=== PATIENT | male | born 1980 | race Caucasian/White ===

== ENCOUNTER 2018-08-28 14:19 | Emergency (ER) | payer SELFPAY ==
[~2018-08-28] VITALS: Ht 185.4 cm; Wt 120.2 kg
[2018-08-28 14:42] VITALS: BP 131/66
[2018-08-28] MEDS ORDERED: KETOROLAC TROMETH 60MG/2ML VIAL IM ONE (15:15)
[2018-08-28] MEDS ORDERED: methylPREDNISolone SOD SUCC 125 MG/2 ML VL IM ONE (15:15)
== END 2018-08-28 16:41 | disposition home or self-care (01) ==
LOC: ER 14:19
DX: M54.5 Low back pain (principal)
CPT/HCPCS: 72100; 96372; 99283; J1885; J2930

== ENCOUNTER 2019-04-05 23:20 | Emergency (ER) | payer OTHER ==
[~2019-04-05] VITALS: Ht 185.4 cm; Wt 108.9 kg
[2019-04-06 00:15] VITALS: BP 113/72
[2019-04-06] MEDS ORDERED: HYDROcodone-ACET 10/325MG TAB PO ONE (01:00)
[2019-04-06] MEDS ORDERED: cefTRIAXone SOD 1,000 MG VL IM ONE (01:00)
[2019-04-06] MEDS ORDERED: LIDOCAINE 1% HCL (LOCAL ANESTH.) INJ 20ML MDV IJ ONE (01:15)
== END 2019-04-06 01:39 | disposition home or self-care (01) ==
LOC: ER 23:20
DX: K08.89 Other specified disorders of teeth and supporting structures (principal)
CPT/HCPCS: 96372; 99283; J0696; J2001

== ENCOUNTER 2019-06-07 07:09 | Emergency (ER) | payer OTHER ==
[~2019-06-07] VITALS: Ht 185.4 cm; Wt 117.9 kg
[2019-06-07 07:28] VITALS: BP 128/77
[2019-06-07] MEDS ORDERED: cefTRIAXone SOD 1,000 MG VL IM ONE (07:30)
== END 2019-06-07 07:54 | disposition home or self-care (01) ==
LOC: ER 07:09
DX: S20.461A Insect bite (nonvenomous) of right back wall of thorax, initial encounter (principal); S40.861A Insect bite (nonvenomous) of right upper arm, initial encounter; J02.9 Acute pharyngitis, unspecified; W57.XXXA Bitten or stung by nonvenomous insect and other nonvenomous arthropods, initial encounter; Y93.89 Activity, other specified; Y92.89 Other specified places as the place of occurrence of the external cause; Y99.8 Other external cause status
CPT/HCPCS: 96372; 99283; J0696

== ENCOUNTER 2019-06-28 12:58 | Emergency (ER) | payer OTHER ==
[~2019-06-28] VITALS: Ht 182.9 cm; Wt 113.4 kg
[2019-06-28 13:34] VITALS: BP 120/78
[2019-06-28] MEDS ORDERED: DexAMETHasone SOD PHOS 10MG/1ML VIAL INJ IM ONE (15:15)
[2019-06-28] MEDS ORDERED: diphenhdrAMINE HCL 50 MG/1 ML VL IM ONE (15:15)
== END 2019-06-28 15:32 | disposition home or self-care (01) ==
LOC: ER 12:58
DX: R21 Rash and other nonspecific skin eruption (principal); R60.9 Edema, unspecified; R07.9 Chest pain, unspecified; Z90.49 Acquired absence of other specified parts of digestive tract
CPT/HCPCS: 96372; 99283; J1100; J1200

== ENCOUNTER 2019-10-27 01:05 | Emergency (ER) | payer MEDICAID, OTHER ==
[~2019-10-27] VITALS: Ht 185.4 cm; Wt 104.8 kg
[2019-10-27 01:58] LABS: Basophils # (auto) 0.1 10 ^3/uL (0-0.2); Basophils % (auto) 0.5 % (0.0-2.0); Eosinophils # (auto) 0.3 10 ^3/uL (0-0.8); Eosinophils % (auto) 1.5 % (0.0-7.0); Hematocrit 43.3 % (41.0-53.0); Hemoglobin 14.4 g/dL (13.5-17.5); Lymphocytes # (auto) 2.2 10 ^3/uL (0.4-5.4); Lymphocytes % (auto) 12.9 % (10.0-50.0); Mean Corpuscular Hemoglobin 28.5 pg (28.0-32.0); Mean Corpuscular Hgb Conc. 33.2 g/dL (32.0-36.0); Monocytes # (auto) 1.2 10 ^3/uL (0-1.3); Neutrophils # (auto) 13.1 10 ^3/uL (1.6-8.6); Neutrophils % (auto) 78.1 % (37.0-80.0); Nucleated Red Blood Cells % 0.1 %; Platelet Count (auto) 287 10^3/uL (140-450); Red Blood Cells 5.04 10^6/uL (4.5-5.90); Red Cell Distribution Width 15.6 % (11.8-14.3); White Blood Cell 16.7 10^3/uL (4.4-10.8)
[2019-10-27 02:17] LABS: Urine Bacteria FEW /hpf (None Seen); Urine Blood Negative /uL (Negative); Urine Specific Gravity 1.024 (1.001-1.035); Urine WBC 7 /hpf (0 - 3)
[2019-10-27 02:19] LABS: Albumin 3.5 g/dL (3.4-5.0); BUN/Creatinine Ratio 12.7; Potassium 3.9 mmol/L (3.5-5.1)
[2019-10-27 02:22] LABS: Bilirubin, Total 0.2 mg/dL (0.2-1.0); Total Protein 7.1 g/dL (6.4-8.2)
[2019-10-27 04:08] VITALS: BP 129/80
[2019-10-27 04:26] LABS: INR 0.93 (0.9-1.15); Partial Thromboplastin Time 27.6 sec (23.64-32.05)
[2019-10-27 04:42] LABS: Uric Acid 4.8 mg/dL (3.5-7.2)
[2019-10-27] MEDS ORDERED: cefTRIAXone 1GM/50ML D5W 50 ML IV ONE (05:30)
[2019-10-27] MEDS ORDERED: CLINDAMYCIN 900MG IV 50 ML IV ONE (05:30)
[2019-11-01] MEDS ORDERED: METH4PAK PO (15:49)
== END 2019-10-27 06:36 | disposition home or self-care (01) ==
LOC: ER 01:08
DX: L03.113 Cellulitis of right upper limb (principal); M79.601 Pain in right arm; Z90.49 Acquired absence of other specified parts of digestive tract
CPT/HCPCS: 36415; 80053; 81001; 83605; 83880; 84484; 84550; 85025; 85379; 85610; 85730; 87040; 93926; 93971; 96365; 96375; 99285; J0696; J3490

== ENCOUNTER 2019-10-28 12:02 | Inpatient (IN) | payer MEDICAID ==
[~2019-10-28] VITALS: Ht 185.4 cm; Wt 109.0 kg
[2019-10-28] MEDS ORDERED: KETOROLAC TROMETH 15 mg/ml 1ML VL IV ONE (12:45)
[2019-10-28] MEDS ORDERED: IOHEXOL 350 MG/ML 100ML IJ ONE ×2 (13:05→13:14)
[2019-10-28 13:17] LABS: Basophils # (auto) 0.1 10 ^3/uL (0-0.2); Basophils % (auto) 0.5 % (0.0-2.0); Eosinophils # (auto) 0.2 10 ^3/uL (0-0.8); Eosinophils % (auto) 1.3 % (0.0-7.0); Hemoglobin 14.8 g/dL (13.5-17.5); Lymphocytes # (auto) 2.2 10 ^3/uL (0.4-5.4); Lymphocytes % (auto) 15.6 % (10.0-50.0); Mean Corpuscular Hemoglobin 28.8 pg (28.0-32.0); Mean Corpuscular Hgb Conc. 33.7 g/dL (32.0-36.0); Mean Corpuscular Volume 85.3 fL (80.0-100.0); Monocytes # (auto) 0.8 10 ^3/uL (0-1.3); Monocytes % (auto) 5.7 % (0.0-12.0); Neutrophils # (auto) 11.1 10 ^3/uL (1.6-8.6); Neutrophils % (auto) 76.9 % (37.0-80.0); Platelet Count (auto) 281 10^3/uL (140-450); Red Blood Cells 5.16 10^6/uL (4.5-5.90); Red Cell Distribution Width 15.5 % (11.8-14.3); White Blood Cell 14.4 10^3/uL (4.4-10.8)
[2019-10-28 13:33] LABS: Albumin 3.3 g/dL (3.4-5.0); Calcium 8.7 mg/dL (8.5-10.1); Potassium 3.7 mmol/L (3.5-5.1)
[2019-10-28 13:37] LABS: Bilirubin, Total 0.4 mg/dL (0.2-1.0); Total Protein 6.7 g/dL (6.4-8.2)
[2019-10-28 13:41] LABS: BUN/Creatinine Ratio 15.2
[2019-10-28] MEDS ORDERED: ONDANSETRON HCL 4 MG/2 ML VIAL IV PRN (15:30)
[2019-10-28] MEDS ORDERED: ACETAMINOPHEN 500 MG TAB PO PRN (15:30)
[2019-10-28] MEDS ORDERED: SODIUM CHLORIDE 0.9% 1,000 ML IV ONE (15:30)
[2019-10-28] MEDS ORDERED: MORPHINE SULF INJ 2 MG/ML SYRINGE 1ML IV PRN (15:30)
[2019-10-28] MEDS ORDERED: HYDROcodone-ACET 5/325MG TAB PO PRN (15:30)
[2019-10-28] MEDS ORDERED: NITROGLYCERIN 0.4 MG SL TAB SL PRN (15:30)
--- NOTE | 2019-10-28 16:27 | NUR ---
SBAR report received from [employer] APPLICATOR.
[2019-10-28 17:00] VITALS: BP 122/75
[2019-10-28 17:00] LABS: CRP High Sensitivity 4.13 mg/dL (< 0.3)
--- NOTE | 2019-10-28 17:05 | NUR ---
Telemetry admit from ER [facility] admitted to Telemetry unit after SBAR received. Patient oriented to Jessica Giron, primary RN, unit, room, bed, and unit policies regarding patient care and visiting hours. Patient now on continuous telemetry monitoring, tele box #3 and telemetry reading on arrival to unit is ST. Patient placed on bedside oxygen, weighed by bedscale and encouraged to call if they need something. All questions and concerns addressed, patient verbalized understanding.
--- NOTE | 2019-10-28 17:37 | NUR ---
Patient is c/o pain on lower and upper extremities. Rates the pain 10/10, will medicate as prescribed by MD.
[2019-10-28 17:40] VITALS: BP 122/75
[2019-10-28] MEDS: MORPHINE SULF INJ 2 MG/ML SYRINGE 1ML IV PRN (17:50)
--- NOTE | 2019-10-28 18:20 | NUR ---
Pain reassessment patient is comfortably sitting up in bed, states pain level is 4/10. Will continue to monitor.
--- NOTE | 2019-10-28 19:20 | NUR ---
Opening Shift Note Assumed care of patient. Patient A&Ox4. No S/S of distress/SOB or pain. POC discussed, bed is locked in lowest position with side rails up x2 for safety. Call light is within reach and patient encouraged to call as needed. Will continue to monitor for changes Q1hr and PRN.
--- NOTE | 2019-10-28 19:40 | NUR ---
closing note No c/o pain. No s/s of distress/sob noted/stated. Report given to SUKHI ADAMS.
[2019-10-28 21:04] VITALS: BP 117/71
[2019-10-29] VITALS (7 sets, daily range): BP systolic 126–140; BP diastolic 69–82
--- NOTE | 2019-10-29 05:36 | NUR ---
PATIENT HAS SWELLING OF THE TONGUE, LAST MEDICATION GIVEN WAS MORPHINE AT 1800. PATIENT HAS HAD NO COMPLAINTS OF PAIN OR SHORTNESS OF BREATH. O2 AT THIS TIME IS AT 91%. NASAL CANNULA APPLIED AT 2L. HOSPITALIST MADE AWARE AND NEW ORDERS RECEIVED, WILL CARRY OUT ORDERS AND CONTINUE TO MONITOR.
[2019-10-29] MEDS ORDERED: diphenhdrAMINE HCL 50 MG/1 ML VL IV ONE (05:45)
[2019-10-29] MEDS ORDERED: diphenhdrAMINE HCL 50 MG/1 ML VL ONE (05:51)
[2019-10-29 07:15] LABS: Basophils # (auto) 0.1 10 ^3/uL (0-0.2); Basophils % (auto) 0.5 % (0.0-2.0); Eosinophils # (auto) 0.2 10 ^3/uL (0-0.8); Eosinophils % (auto) 2.1 % (0.0-7.0); Hematocrit 43.9 % (41.0-53.0); Hemoglobin 14.2 g/dL (13.5-17.5); Lymphocytes # (auto) 2.1 10 ^3/uL (0.4-5.4); Lymphocytes % (auto) 18.2 % (10.0-50.0); Mean Corpuscular Hemoglobin 28.1 pg (28.0-32.0); Mean Corpuscular Hgb Conc. 32.5 g/dL (32.0-36.0); Mean Corpuscular Volume 86.6 fL (80.0-100.0); Monocytes # (auto) 0.6 10 ^3/uL (0-1.3); Monocytes % (auto) 5.1 % (0.0-12.0); Neutrophils # (auto) 8.7 10 ^3/uL (1.6-8.6); Neutrophils % (auto) 74.1 % (37.0-80.0); Platelet Count (auto) 247 10^3/uL (140-450); Red Blood Cells 5.06 10^6/uL (4.5-5.90); Red Cell Distribution Width 15.9 % (11.8-14.3); White Blood Cell 11.7 10^3/uL (4.4-10.8)
[2019-10-29 07:36] LABS: Calcium 8.8 mg/dL (8.5-10.1)
[2019-10-29 07:38] LABS: BUN/Creatinine Ratio 18.9
--- NOTE | 2019-10-29 09:00 | NUR ---
Pain patient is complaining of bilateral arm pain, rates it 7/10. Will medicate as prescribed by MD.
[2019-10-29] MEDS: FAMOTIDINE 20 MG TAB PO SCH (09:26)
[2019-10-29] MEDS: MORPHINE SULF INJ 2 MG/ML SYRINGE 1ML IV PRN ×2 (09:26→22:21)
[2019-10-29] MEDS ORDERED: ALBUTEROL SULF 2.5 MG/0.5ML(0.5%) NEB SOLN NEB PRN (10:30)
[2019-10-29] MEDS ORDERED: IPRATROPIUM BROM 0.5 MG/2.5ML INH SOL NEB PRN (10:30)
[2019-10-29] MEDS ORDERED: diphenhdrAMINE HCL 50 MG/1 ML VL IV PRN (10:30)
--- NOTE | 2019-10-29 11:25 | NUR ---
PT. ASSESSED FOR PRN. MN.TX., NO RESP. DISTRESS NOTED. BS. ARE CLEAR AND DIMINISHED, HR=92,RR=18,SP02=99% ON RA. PT. STATES HE IS HAVING NO PROBLEMS BREATHING. PRN. TX.NOT INDICATED AT THIS TIME. NO TX. GIVEN.
[2019-10-29] MEDS: methylPREDNISolone SOD SUCC 125 MG/2 ML VL IV SCH ×2 (13:34→22:15)
--- NOTE | 2019-10-29 15:35 | NUR ---
Patient went down to smoke .
--- NOTE | 2019-10-29 19:20 | NUR ---
PT ASSESSED, BS CLEAR/DIMINISHED, NO SOB NOTED
--- NOTE | 2019-10-29 19:30 | NUR ---
Opening Shift Note Assumed care of patient, awake and alert oriented x4. No S/S of distress/SOB noted. Instructed on POC and to call for assist PRN. Bed is in lowest locked position with bed rails up x2 and call light is within reach of the patient.
[2019-10-30 03:34] LABS: Urine Bacteria FEW /hpf (None Seen); Urine Blood Negative /uL (Negative); Urine Specific Gravity 1.014 (1.001-1.035); Urine Sperm PRESENT /hpf (None Seen); Urine WBC 2 /hpf (0 - 3)
[2019-10-30 03:45] LABS: Alcohol, Urine < 3.0 mg/dL (0-5); Amphetamine Screen, Urine POSITIVE (NEGATIVE); Barbiturate Scree,Urine NEGATIVE (NEGATIVE); Benzodiazephine Screen, Urine NEGATIVE (NEGATIVE); Cannabinoid Screen, Urine NEGATIVE (NEGATIVE); Cocaine Screen, Urine NEGATIVE (NEGATIVE); Opiate Scree,Urine NEGATIVE (NEGATIVE); Phencyclidine Screen, Urine NEGATIVE (NEGATIVE)
[2019-10-30 04:00] VITALS: BP 120/65
[2019-10-30] MEDS: methylPREDNISolone SOD SUCC 125 MG/2 ML VL IV SCH ×2 (06:17→22:27)
[2019-10-30 07:02] LABS: Ferritin 88.1 ng/mL (10-322)
[2019-10-30 07:05] LABS: Folate (Folic Acid) 9.64 ng/mL (5.38-24)
--- NOTE | 2019-10-30 07:09 | NUR ---
Respiratory note: PRN MED NEB TX NOT INDICATED AT THIS TIME. HR 83, RR 18, SPO2 92% ON RA, BS SNORING. NO SIGNS OR SYMPTOMS OF RESPIRATORY DISTRESS NOTED AT THIS TIME. PT SLEEPING AT THIS TIME.
--- NOTE | 2019-10-30 07:40 | NUR ---
Patient in bed asleep, no acute distress noted. On NPO. With signed AMA to smoke off unit.
[2019-10-30] MEDS ORDERED: IOHEXOL 300 MG/ML 100ML BOTTLE IJ ONE (07:42)
[2019-10-30] MEDS ORDERED: OMNIPAQUE ORAL SOLN 500ml 12mg/ml PO ONE (07:42)
--- NOTE | 2019-10-30 08:00 | NUR ---
Received a call from patient's father Raudel ([phone]). Patient asleep at this time.
[2019-10-30 08:04] LABS: % Iron Saturation 19.9 % (20-55)
--- NOTE | 2019-10-30 08:50 | NUR ---
Spoke with Law Firm Administrator Xiomy Goldstein regarding patient with no insurance.
--- NOTE | 2019-10-30 09:05 | NUR ---
Received a call from Eh. Eh said Dr. Rivera cannot see the patient for Rheumatology Consult because of patient's insurance.
[2019-10-30 09:29] VITALS: BP 123/75
[2019-10-30] MEDS: FAMOTIDINE 20 MG TAB PO SCH (09:53)
--- NOTE | 2019-10-30 10:25 | NUR ---
Called Radiology for CT Scan w/ contrast. Informed the Tech that patient had two bottles of contrast at bedside. Patient stated the contrast were brought to him around 7 or 7:30 am today. Tech said they will come over to picking table worker the patient after they're done with another patient's test.
--- NOTE | 2019-10-30 11:25 | NUR ---
Dr. Gardner came over to see the patient. made aware that the office of Dr. Rivera called and will not see the patient for Rheumatology Consult due to insurance issues. Patient waiting for Tech to come over to pick him up for CT Abd Pelvis w/ contrast. Patient NPO.
--- NOTE | 2019-10-30 12:17 | NUR ---
Patient off unit for CT Abd Pelvis w/ contrast.
--- NOTE | 2019-10-30 12:55 | NUR ---
Patient back to room post CT Abd Pelvis.
--- NOTE | 2019-10-30 13:15 | NUR ---
Patient off unit. Patient has signed AMA form to smoke off unit. Patient is ambulatory.
--- NOTE | 2019-10-30 13:35 | NUR ---
Patient back to room from smoking off unit/downstairs.
[2019-10-30 13:51] VITALS: BP 130/78
[2019-10-30 17:33] VITALS: BP 136/74
[2019-10-30] MEDS: MORPHINE SULF INJ 2 MG/ML SYRINGE 1ML IV PRN (19:54)
[2019-10-30 20:00] VITALS: BP 129/71
--- NOTE | 2019-10-30 23:23 | NUR ---
Respiratory note: AT BEDSIDE TO ASSESS FOR PRN TX, TX NOT INDICTED AT THIS TIME BS ARE CLEAR T/O, HR 90S, POX 96-98% ON RA. PT AWARE I CAN BE PAGED AT ANY TIME HE HAS A CONCERN WITH HIS BREATHING. RT NAME AND PAGER ASSIGNMENT WRITTEN ON PTS ROOM BOARD. WILL CONTINUE TO MONITOR.
[2019-10-31] MEDS: MORPHINE SULF INJ 2 MG/ML SYRINGE 1ML IV PRN ×2 (02:08→21:11)
[2019-10-31 04:30] VITALS: BP 132/75
[2019-10-31 06:57] LABS: Basophils # (auto) 0.1 10 ^3/uL (0-0.2); Basophils % (auto) 0.4 % (0.0-2.0); Eosinophils # (auto) 0 10 ^3/uL (0-0.8); Hematocrit 42.8 % (41.0-53.0); Hemoglobin 14.4 g/dL (13.5-17.5); Lymphocytes % (auto) 5.6 % (10.0-50.0); Mean Corpuscular Hemoglobin 28.7 pg (28.0-32.0); Mean Corpuscular Hgb Conc. 33.7 g/dL (32.0-36.0); Mean Corpuscular Volume 85.4 fL (80.0-100.0); Monocytes # (auto) 0.4 10 ^3/uL (0-1.3); Monocytes % (auto) 2.5 % (0.0-12.0); Neutrophils # (auto) 15.8 10 ^3/uL (1.6-8.6); Neutrophils % (auto) 91.5 % (37.0-80.0); Platelet Count (auto) 313 10^3/uL (140-450); Red Blood Cells 5.01 10^6/uL (4.5-5.90); Red Cell Distribution Width 15.4 % (11.8-14.3); White Blood Cell 17.2 10^3/uL (4.4-10.8)
--- NOTE | 2019-10-31 06:58 | NUR ---
Closing note: Patient is resting in bed with breaths even and unlabored. Will endorse care to day shift nurse.
--- NOTE | 2019-10-31 07:17 | NUR ---
Opening Shift Note Assumed care of patient, resting in bed with eyes closed. No S/S of distress/SOB or pain. Bed is set in lowest locked position with side rails up x 2 for safety and call light is within reach, will continue to monitor for changes Q1hr and PRN.
[2019-10-31 08:09] VITALS: BP 128/64
[2019-10-31 09:00] VITALS: BP 128/64
[2019-10-31] MEDS: methylPREDNISolone SOD SUCC 125 MG/2 ML VL IV SCH (09:37)
[2019-10-31] MEDS: FAMOTIDINE 20 MG TAB PO SCH (09:37)
--- NOTE | 2019-10-31 11:23 | NUR ---
Respiratory note: ASSESSED PT FOR PRN BREATHING TX, PT IS CURRENTLY ON ROOM AIR. PT IS IN NO RESPIRATORY DISTRESS. PT VITALS ARE STABLE. PT IS AWARE TO HAVE RT PAGED IF BREATHING TX IS NEEDED. WILL CONTINUE TO MONITOR PT.
[2019-10-31 13:00] VITALS: BP 130/77
[2019-10-31] MEDS ORDERED: NICOTINE 21MG/24 HR TOPICAL PATCH TD ONE (16:30)
[2019-10-31 16:49] VITALS: BP 129/74
--- NOTE | 2019-10-31 19:18 | NUR ---
Endorsed care to NOC RN.
--- NOTE | 2019-10-31 19:33 | NUR ---
received report from day rn poc reviewed
--- NOTE | 2019-10-31 20:01 | NUR ---
ASSESSED PT @ THIS TIME FOR PRN MED NEB TX. PT IS AWAKE AND ALERT AND RESTING COMFORTABLY IN BED. HE STATES HIS BREATHING IS DOING FINE. NO DISTRESS NOTED. HE'S CURRENTLY ON R/A SPO2 94%, HR 91, RR 18 AND BS ARE DIMINISHED T/O. HE IS AWARE TO CALL IF HE FEELS SOB.
[2019-10-31] MEDS: methylPREDNISolone SOD SUCC 40 MG/ML VL IV SCH (21:12)
--- NOTE | 2019-10-31 21:12 | NUR ---
c/0 general pain 9/10 medicated as ordered
--- NOTE | 2019-10-31 21:59 | NUR ---
pain relieved with med given pt resting comfortable
[2019-10-31 22:00] VITALS: BP 143/76
[2019-11-01 05:00] VITALS: BP 118/78
--- NOTE | 2019-11-01 06:17 | NUR ---
resting with eyes closed no c/o discomfort
[2019-11-01 06:52] LABS: Basophils # (auto) 0 10 ^3/uL (0-0.2); Basophils % (auto) 0.1 % (0.0-2.0); Eosinophils # (auto) 0 10 ^3/uL (0-0.8); Hematocrit 43.5 % (41.0-53.0); Hemoglobin 14.6 g/dL (13.5-17.5); Lymphocytes # (auto) 1.6 10 ^3/uL (0.4-5.4); Lymphocytes % (auto) 10.1 % (10.0-50.0); Mean Corpuscular Hemoglobin 28.9 pg (28.0-32.0); Mean Corpuscular Hgb Conc. 33.5 g/dL (32.0-36.0); Mean Corpuscular Volume 86.2 fL (80.0-100.0); Monocytes # (auto) 0.8 10 ^3/uL (0-1.3); Monocytes % (auto) 5.2 % (0.0-12.0); Neutrophils # (auto) 13.8 10 ^3/uL (1.6-8.6); Neutrophils % (auto) 84.6 % (37.0-80.0); Platelet Count (auto) 330 10^3/uL (140-450); Red Blood Cells 5.05 10^6/uL (4.5-5.90); White Blood Cell 16.3 10^3/uL (4.4-10.8)
--- NOTE | 2019-11-01 06:52 | NUR ---
report given to am nurse poc reviewed
[2019-11-01 08:53] LABS: INR 0.96 (0.9-1.15); Partial Thromboplastin Time 24.2 sec (23.64-32.05)
--- NOTE | 2019-11-01 09:34 | NUR ---
Regarding biopsy Per Shanthi in radiology, Dr Malloy is cancelling biopsy and she will contact Dr Gardner. Patient able to eat now. Cont care
[2019-11-01 09:50] VITALS: BP 132/77
[2019-11-01] MEDS ORDERED: NICOTINE 21MG/24 HR TOPICAL PATCH TD SCH (10:00)
[2019-11-01] MEDS: FAMOTIDINE 20 MG TAB PO SCH (10:21)
[2019-11-01] MEDS: methylPREDNISolone SOD SUCC 40 MG/ML VL IV SCH (10:21)
--- NOTE | 2019-11-01 11:30 | NUR ---
Respiratory note: ROUTINE PRN CHECK. HR 81. RR 20, POX 97% ON RA, BS CLEAR. NO SOB OR DISTRESS NOTED. PT WAS NOTIFY TO HAVE RT PAGE FOR MN TX.
[2019-11-01 13:00] VITALS: BP 120/65
[2019-11-01 14:27] VITALS: BP 132/77
--- NOTE | 2019-11-01 15:30 | NUR ---
Hospitalist at bedside MD Gardner at bedside, aware of patient's status. MD spoke to patient regarding poc and follow up instructions including f/u CT and PCP. Patient verbalized understanding. Will dc as ordered.
[2019-11-01] MEDS ORDERED: METH4PAK PO (15:49)
[2019-11-01 17:00] VITALS: BP 142/76
--- NOTE | 2019-11-01 17:44 | NUR ---
Discharge instructions given as ordered and after patient's consent, friend Belinda at bedside. Encourage to follow up with PMD as instructed. All questions and concerns addressed. Patient verbalized understanding. Medication reconciliation form completed and copy given to patient. Patient informed that new prescriptions called in to preferred pharmacy [facility] by Provider Dr Gardner. IV removed with catheter intact, pressure dressing applied. Telemetry unit returned to ICU. Patient refused wheelchair and ambulated in no distress to vehicle with all personal belongings, accompanied by family member. No distress noted at time of departure.
[2019-11-02 08:34] LABS: Hepatitis B Surface Antibody Negative
[2019-11-02 09:09] LABS: Hepatitis A Total Antibody Negative
[2019-11-02 11:06] LABS: Hepatitis B Core Total AB Negative; Hepatitis B Surface Antigen Negative (Negative)
[2019-11-02 11:07] LABS: Hepatitis C Antibody Negative (Negative)
== END 2019-11-01 17:44 | disposition home or self-care (01) | DRG 143 ==
LOC: ER 12:03 → TELE 12:04 → TELE-EAST 17:18
PROVIDERS: ADMIT Nurse Practitioner Acute Care; ATTEND Internal Medicine
DX: J98.59 Other diseases of mediastinum, not elsewhere classified (principal); C85.90 Non-Hodgkin lymphoma, unspecified, unspecified site; R65.10 Systemic inflammatory response syndrome (SIRS) of non-infectious origin without acute organ dysfunction; T78.3XXA Angioneurotic edema, initial encounter; L03.113 Cellulitis of right upper limb; D72.829 Elevated white blood cell count, unspecified; E66.9 Obesity, unspecified; R63.4 Abnormal weight loss; F17.210 Nicotine dependence, cigarettes, uncomplicated; F15.90 Other stimulant use, unspecified, uncomplicated; T38.0X5A Adverse effect of glucocorticoids and synthetic analogues, initial encounter; Z90.49 Acquired absence of other specified parts of digestive tract; Z80.1 Family history of malignant neoplasm of trachea, bronchus and lung; Z68.31 Body mass index [BMI] 31.0-31.9, adult
CPT/HCPCS: 36415; 71045; 71275; 74177; 80048; 80053; 80307; 81001; 82607; 82728; 82746; 83516; 83540; 83550; 83615; 83735; 83880; 84443; 84484; 84550; 85025; 85379; 85610; 85652; 85730; 86141; 86160; 86225; 86235; 86704; 86706; 86708; 86803; 87081; 87340; 93005; 93306; 96374; G0378